=== PATIENT | female | born 1960 | race Caucasian/White ===

== ENCOUNTER 2017-02-17 10:53 | Emergency (ER) | payer OTHER, MEDICAID ==
[~2017-02-17] VITALS: Ht 152.4 cm; Wt 55.3 kg
[2017-02-17 13:05] VITALS: BP 143/62
== END 2017-02-17 13:05 | disposition home or self-care (01) ==
LOC: ED 10:53
DX: S20.211A Contusion of right front wall of thorax, initial encounter (principal); S00.33XA Contusion of nose, initial encounter; S00.83XA Contusion of other part of head, initial encounter; Z88.0 Allergy status to penicillin; Z88.5 Allergy status to narcotic agent; Z88.6 Allergy status to analgesic agent; Z88.8 Allergy status to other drugs, medicaments and biological substances; V89.2XXA Person injured in unspecified motor-vehicle accident, traffic, initial encounter; Y93.89 Activity, other specified; Y92.488 Other paved roadways as the place of occurrence of the external cause; Y99.8 Other external cause status